=== PATIENT | female | born 1950 | race Two or more races ===

== ENCOUNTER 2024-08-06 05:09 | Day surgery (SDC) | payer OTHER ==
[2024-07-23 12:16] LABS: INR 1.05; PARTIAL THROMBOPLASTIN TIME 27.6 SECONDS (22.0-34.0); PROTHROMBIN TIME 11.4 SECONDS (9.0-11.5)
[~2024-08-06 05:09] MED LIST: COZAAR50 MG PO; ESCITALOPRAM OX10 MG PO; GLIPIZIDE XL2.5 MG PO; PROTONIX40 MG PO; SINGULAIR10 MG PO; SYNTHROID112 MCG PO; TOPROL XL50 M1 PO; TRAZODONE HCL150 MG PO; TRULICITY3 MG/0.5 M
[2024-08-06] MEDS ORDERED: CEFAZOLIN SODIUM 1,000 MG VIAL ONE (07:21)
[2024-08-06] MEDS ORDERED: GENTAMICIN SULFATE 40 MG/ML VIAL ONE (07:34)
[2024-08-06] MEDS ORDERED: LIDOCAINE HCL 1%/EPINEPHRINE 20ML VIAL IJ ONE (07:35)
[2024-08-06] MEDS ORDERED: CHLORHEXIDINE GLUCONATE 120 ML BOTTLE TOP ONE (07:35)
[2024-08-06] MEDS ORDERED: LIDOCAINE HCL 1% 20ML VIAL IJ ONE (07:57)
[2024-08-06] MEDS ORDERED: CEFAZOLIN SODIUM 1,000 MG VIAL IV ONE (08:30)
[2024-08-06] MEDS ORDERED: LIDOCAINE HCL 1% 10ML VIAL IJ ONE (08:30)
[2024-08-06] MEDS ORDERED: CEPHALEXIN250 MG PO (09:37)
[2024-08-06] MEDS ORDERED: TRAM1TAB98 PO (09:38)
== END 2024-08-06 11:55 | disposition home or self-care (01) ==
LOC: CIR.AMB 05:09
PROVIDERS: ATTEND Obstetrics & Gynecology Gynecology
DX: N39.41 Urge incontinence (principal); N32.81 Overactive bladder; Z88.6 Allergy status to analgesic agent
CPT/HCPCS: 64581; 64590; 95972; C1767; C1778